=== PATIENT | male | born 1975 | race Hispanic/Latino ===

== ENCOUNTER 2016-07-20 18:35 | Emergency (ER) | payer OTHER ==
[2016-07-20 18:52] VITALS: BP 113/74; RESP 16; TEMP 98.2; O2SAT 100
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
[2016-07-20 21:56] VITALS: PULSE 60
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
== END 2016-07-20 21:54 | disposition home or self-care (01) ==
LOC: H.ER 18:35
DX: S60.221A Contusion of right hand, initial encounter (principal); T14.8 Other injury of unspecified body region; Y92.410 Unspecified street and highway as the place of occurrence of the external cause